=== PATIENT | female | born 1945 | race Caucasian/White ===

== ENCOUNTER → 2017-07-13 08:59 | Outpatient (CLI) | payer OTHER | END | disposition home or self-care (01) | LOC: LAB 08:59 | DX: E03.8 Other specified hypothyroidism (principal); I11.9 Hypertensive heart disease without heart failure; E78.4 Other hyperlipidemia; I10 Essential (primary) hypertension; E11.9 Type 2 diabetes mellitus without complications; E78.2 Mixed hyperlipidemia ==

== ENCOUNTER → 2017-10-18 | Outpatient (CLI) | payer OTHER | END | disposition home or self-care (01) | LOC: NUCLEAR 11:00 | DX: M81.0 Age-related osteoporosis without current pathological fracture (principal) ==

== ENCOUNTER 2018-01-25 09:49 | Outpatient (CLI) | payer OTHER | END 2018-01-25 11:24 | disposition home or self-care (01) | LOC: LAB 09:49 | DX: I11.9 Hypertensive heart disease without heart failure (principal); E78.4 Other hyperlipidemia; E11.65 Type 2 diabetes mellitus with hyperglycemia ==

== ENCOUNTER 2018-03-22 10:32 | Outpatient (CLI) | payer OTHER | END 2018-03-22 10:40 | disposition home or self-care (01) | LOC: LAB 10:32 | DX: R53.83 Other fatigue (principal); R53.1 Weakness; N95.1 Menopausal and female climacteric states; E03.4 Atrophy of thyroid (acquired); E55.9 Vitamin D deficiency, unspecified; I10 Essential (primary) hypertension; R73.09 Other abnormal glucose; E78.01 Familial hypercholesterolemia; E72.11 Homocystinuria ==

== ENCOUNTER 2018-10-24 09:27 | Outpatient (CLI) | payer OTHER | END 2018-10-24 09:30 | disposition home or self-care (01) | LOC: LAB 09:27 | DX: E78.2 Mixed hyperlipidemia (principal); E11.65 Type 2 diabetes mellitus with hyperglycemia; Z12.11 Encounter for screening for malignant neoplasm of colon; I10 Essential (primary) hypertension ==

== ENCOUNTER 2019-02-14 09:12 | Outpatient (CLI) | payer OTHER | END 2019-02-14 14:06 | disposition home or self-care (01) | LOC: LAB 09:12 | DX: E78.2 Mixed hyperlipidemia (principal); E11.65 Type 2 diabetes mellitus with hyperglycemia; Z12.11 Encounter for screening for malignant neoplasm of colon; E06.3 Autoimmune thyroiditis ==

== ENCOUNTER 2019-03-06 07:33 | Outpatient (CLI) | payer OTHER | END 2019-03-06 07:38 | disposition home or self-care (01) | LOC: SONOGRAMA 07:33 → MAMO-SONO 07:45 | DX: R10.84 Generalized abdominal pain (principal) ==

== ENCOUNTER 2019-07-31 09:13 | Outpatient (CLI) | payer OTHER | END 2019-07-31 15:00 | disposition home or self-care (01) | LOC: LAB 09:13 | DX: E11.65 Type 2 diabetes mellitus with hyperglycemia (principal); E78.2 Mixed hyperlipidemia; I10 Essential (primary) hypertension; Z12.11 Encounter for screening for malignant neoplasm of colon ==

== ENCOUNTER → 2019-12-04 09:21 | Outpatient (CLI) | payer OTHER | END | disposition home or self-care (01) | LOC: LAB 09:21 | PROVIDERS: ATTEND Specialist | DX: E78.2 Mixed hyperlipidemia (principal); I10 Essential (primary) hypertension; E11.65 Type 2 diabetes mellitus with hyperglycemia ==

== ENCOUNTER 2019-12-09 12:55 | Outpatient (CLI) | payer OTHER | END 2019-12-09 13:02 | disposition home or self-care (01) | LOC: MAMO-SONO 12:55 | PROVIDERS: ATTEND Specialist | DX: Z12.31 Encounter for screening mammogram for malignant neoplasm of breast (principal) ==

== ENCOUNTER 2020-02-02 14:02 | Outpatient (CLI) | payer OTHER | END 2020-02-02 14:19 | disposition home or self-care (01) | LOC: NUCLEAR 14:02 | PROVIDERS: ATTEND Specialist | DX: M81.0 Age-related osteoporosis without current pathological fracture (principal) ==

== ENCOUNTER → 2020-03-12 09:30 | Outpatient (CLI) | payer OTHER | END | disposition home or self-care (01) | LOC: LAB 09:30 | PROVIDERS: ATTEND Specialist | DX: E06.3 Autoimmune thyroiditis (principal); I10 Essential (primary) hypertension; E11.9 Type 2 diabetes mellitus without complications; E78.2 Mixed hyperlipidemia ==

== ENCOUNTER 2020-07-08 09:19 | Outpatient (CLI) | payer OTHER | END 2020-07-08 09:25 | disposition home or self-care (01) | LOC: LAB 09:19 | PROVIDERS: ATTEND Specialist | DX: I10 Essential (primary) hypertension (principal); E78.2 Mixed hyperlipidemia; E06.0 Acute thyroiditis; R73.09 Other abnormal glucose; Z12.11 Encounter for screening for malignant neoplasm of colon ==

== ENCOUNTER 2020-09-24 10:12 | Outpatient (CLI) | payer OTHER | END 2020-09-24 10:20 | disposition home or self-care (01) | LOC: LAB 10:12 → PPH VACUNA 10:12 → LAB 10:20 | PROVIDERS: ATTEND Specialist | DX: E78.2 Mixed hyperlipidemia (principal); I10 Essential (primary) hypertension; E55.9 Vitamin D deficiency, unspecified ==

== ENCOUNTER 2021-01-26 08:23 | Outpatient (CLI) | payer OTHER | END 2021-01-26 08:38 | disposition home or self-care (01) | LOC: MAMO-SONO 08:23 | PROVIDERS: ATTEND Specialist | DX: R92.1 Mammographic calcification found on diagnostic imaging of breast (principal); Z12.31 Encounter for screening mammogram for malignant neoplasm of breast ==

== ENCOUNTER 2021-02-10 09:41 | Outpatient (CLI) | payer OTHER | END 2021-02-10 09:42 | disposition home or self-care (01) | LOC: LAB 09:41 | PROVIDERS: ATTEND Specialist | DX: E78.2 Mixed hyperlipidemia (principal); E11.65 Type 2 diabetes mellitus with hyperglycemia; I10 Essential (primary) hypertension; Z12.11 Encounter for screening for malignant neoplasm of colon ==

== ENCOUNTER 2021-05-23 08:12 | Outpatient (CLI) | payer OTHER | END 2021-05-23 08:15 | disposition home or self-care (01) | LOC: SONOGRAMA 08:12 | PROVIDERS: ATTEND Specialist | DX: K80.80 Other cholelithiasis without obstruction (principal); N18.30 Chronic kidney disease, stage 3 unspecified; I10 Essential (primary) hypertension ==

== ENCOUNTER 2021-05-24 08:41 | Outpatient (CLI) | payer OTHER | END 2021-05-24 08:43 | disposition home or self-care (01) | LOC: LAB 08:41 | PROVIDERS: ATTEND Specialist | DX: E11.9 Type 2 diabetes mellitus without complications (principal); I10 Essential (primary) hypertension; E78.00 Pure hypercholesterolemia, unspecified ==

== ENCOUNTER 2021-09-01 08:48 | Outpatient (CLI) | payer OTHER | END 2021-09-01 09:07 | disposition home or self-care (01) | LOC: LAB 08:48 | PROVIDERS: ATTEND Specialist | DX: E78.2 Mixed hyperlipidemia (principal); E11.65 Type 2 diabetes mellitus with hyperglycemia; E06.3 Autoimmune thyroiditis; Z12.11 Encounter for screening for malignant neoplasm of colon; E83.40 Disorders of magnesium metabolism, unspecified; E55.9 Vitamin D deficiency, unspecified ==

== ENCOUNTER 2021-09-01 10:04 | Outpatient (CLI) | payer OTHER | END 2021-09-01 10:24 | disposition home or self-care (01) | LOC: SONOGRAMA 10:04 | PROVIDERS: ATTEND Specialist | DX: E04.1 Nontoxic single thyroid nodule (principal) ==

== ENCOUNTER 2021-11-18 08:56 | Outpatient (CLI) | payer OTHER | END 2021-11-18 09:01 | disposition home or self-care (01) | LOC: LAB 08:56 | PROVIDERS: ATTEND Specialist | DX: E78.2 Mixed hyperlipidemia (principal); E11.65 Type 2 diabetes mellitus with hyperglycemia; I10 Essential (primary) hypertension ==

== ENCOUNTER 2022-02-17 07:31 | Outpatient (CLI) | payer OTHER | END 2022-02-17 07:37 | disposition home or self-care (01) | LOC: LAB 07:31 | PROVIDERS: ATTEND Internal Medicine Endocrinology, Diabetes & Metabolism | DX: E11.65 Type 2 diabetes mellitus with hyperglycemia (principal); E03.8 Other specified hypothyroidism; E78.00 Pure hypercholesterolemia, unspecified; E78.2 Mixed hyperlipidemia; I10 Essential (primary) hypertension; Z12.11 Encounter for screening for malignant neoplasm of colon ==

== ENCOUNTER → 2022-05-19 07:35 | Outpatient (CLI) | payer OTHER | END | disposition home or self-care (01) | LOC: LAB 07:35 | PROVIDERS: ATTEND Internal Medicine Endocrinology, Diabetes & Metabolism | DX: E11.65 Type 2 diabetes mellitus with hyperglycemia (principal); E03.8 Other specified hypothyroidism; E78.2 Mixed hyperlipidemia ==

== ENCOUNTER 2022-06-12 13:19 | Outpatient (CLI) | payer OTHER | END 2022-06-12 13:21 | disposition home or self-care (01) | LOC: NUCLEAR 13:19 | PROVIDERS: ATTEND Specialist | DX: M81.0 Age-related osteoporosis without current pathological fracture (principal) ==

== ENCOUNTER 2022-06-26 07:58 | Outpatient (CLI) | payer OTHER | END 2022-06-26 08:01 | disposition home or self-care (01) | LOC: MAMO-SONO 07:58 | PROVIDERS: ATTEND Specialist | DX: Z12.31 Encounter for screening mammogram for malignant neoplasm of breast (principal) ==

== ENCOUNTER 2022-09-24 08:35 | Outpatient (CLI) | payer OTHER | END 2022-09-24 08:39 | disposition home or self-care (01) | LOC: LAB 08:35 | PROVIDERS: ATTEND Specialist | DX: E78.2 Mixed hyperlipidemia (principal); E11.65 Type 2 diabetes mellitus with hyperglycemia; E55.9 Vitamin D deficiency, unspecified; I11.9 Hypertensive heart disease without heart failure; E78.5 Hyperlipidemia, unspecified; E03.8 Other specified hypothyroidism ==

== ENCOUNTER 2023-01-12 09:30 | Outpatient (CLI) | payer OTHER | END 2023-01-12 09:32 | disposition home or self-care (01) | LOC: LAB 09:30 | PROVIDERS: ATTEND Specialist | DX: E78.2 Mixed hyperlipidemia (principal); E11.65 Type 2 diabetes mellitus with hyperglycemia; I10 Essential (primary) hypertension ==

== ENCOUNTER 2023-06-29 07:30 | Outpatient (CLI) | payer OTHER ==
[2023-06-29 08:16] LABS: HEMATOCRIT 39.7 % (36.0-45.00); HEMOGLOBIN 13.9 g/dL (12.0-15.00); MEAN CELL VOLUME 97.4 fL (80.00-100.00); MEAN CORPUSCULAR HEMOGLOBIN 34.2 pg (27.00-32.0); MEAN CORPUSCULAR HGB CONC 35.1 g/dl (32.0-36.0); PLATELET COUNT 320 K/uL (150-450); RED BLOOD COUNT 4.07 M/uL (4.00-6.00); RED CELL DISTRIBUTION WIDTH 12.9 % (11.5-14.5)
[2023-06-29 08:55] LABS: ALBUMIN 3.7 gm/dL (3.4-5.0); BILIRUBIN TOTAL 0.67 mg/dL (0.3-1.2); CALCIUM 9.1 mg/dL (8.5-10.1); CHOL HDL RATIO 2.2 (0-5.0); CREATININE SERUM 0.88 mg/dL (0.55-1.02); GFR 62.47; GLOBULINA 3.3 G/DL (2.4-3.5); POTASSIUM 4.29 mEq/L (3.5-5.1); T4 FREE 1.31 NG/ML (0.76-1.46); TSH 0.884 uIU/mL (0.358-3.74)
[2023-06-29 09:38] LABS: PH,URINE 5.5 (5.0-8.0); URINE APPEARANCE Clear; URINE BILIRRUBIN Negative (NEGATIVE); URINE BLOOD Small; URINE COLOR Yellow; URINE GLUCOSE Negative (NEGATIVE); URINE LEUKOCYTE Trace; URINE NITRATE Negative; URINE PROTEIN Negative (NEGATIVE); URINE UROBILINOGEN 0.2 E.U./dl
[2023-06-29 09:47] LABS: URINE BACTERIA 64.2 uL (0.0-1933); URINE EPITHELIAL CELLS 1.6 uL (0.0-38.8); URINE RBC 5.7 uL (0.0-20.8); URINE WBC 2.9 uL (0.0-23.2)
== END 2023-06-29 07:35 | disposition home or self-care (01) ==
LOC: LAB 07:30
PROVIDERS: ATTEND Internal Medicine Endocrinology, Diabetes & Metabolism
DX: E03.8 Other specified hypothyroidism (principal); E11.65 Type 2 diabetes mellitus with hyperglycemia; E78.00 Pure hypercholesterolemia, unspecified

== ENCOUNTER 2024-03-02 07:56 | Outpatient (CLI) | payer OTHER ==
[2024-03-02 08:57] LABS: HEMATOCRIT 40.3 % (36.0-45.00); HEMOGLOBIN 14.1 g/dL (12.0-15.00); MEAN CELL VOLUME 97.9 fL (80.00-100.00); MEAN CORPUSCULAR HEMOGLOBIN 34.2 pg (27.00-32.0); MEAN CORPUSCULAR HGB CONC 34.9 g/dl (32.0-36.0); PLATELET COUNT 289 K/uL (150-450); RED BLOOD COUNT 4.12 M/uL (4.00-6.00); RED CELL DISTRIBUTION WIDTH 12.8 % (11.5-14.5)
[2024-03-02 09:43] LABS: ALBUMIN 3.6 gm/dL (3.4-5.0); BILIRUBIN TOTAL 0.7 mg/dL (0.3-1.2); CHOL HDL RATIO 2.3 (0-5.0); CREATININE SERUM 0.81 mg/dL (0.55-1.02); GFR 68.75; GLOBULINA 3.6 G/DL (2.4-3.5); POTASSIUM 4.49 mEq/L (3.5-5.1); TOTAL PROTEIN 7.2 gm/dL (6.4-8.2); TSH 0.833 uIU/mL (0.358-3.74)
== END 2024-03-02 08:01 | disposition home or self-care (01) ==
LOC: LAB 07:56
PROVIDERS: ATTEND Specialist
DX: I11.9 Hypertensive heart disease without heart failure (principal); E78.5 Hyperlipidemia, unspecified; E03.8 Other specified hypothyroidism; R43.9 Unspecified disturbances of smell and taste; I10 Essential (primary) hypertension

== ENCOUNTER 2024-03-10 07:53 | Outpatient (CLI) | payer OTHER | END 2024-03-10 07:56 | disposition home or self-care (01) | LOC: SONOGRAMA 07:53 | DX: R10.13 Epigastric pain (principal); R10.11 Right upper quadrant pain ==

== ENCOUNTER 2024-06-01 09:56 | Outpatient (CLI) | payer OTHER | END 2024-06-01 09:58 | disposition home or self-care (01) | LOC: RAD 09:56 | PROVIDERS: ATTEND Specialist | DX: I11.9 Hypertensive heart disease without heart failure (principal) ==

== ENCOUNTER 2024-06-08 08:31 | Outpatient (CLI) | payer OTHER | END 2024-06-08 08:43 | disposition home or self-care (01) | LOC: SONOGRAMA 08:31 | PROVIDERS: ATTEND Internal Medicine Endocrinology, Diabetes & Metabolism | DX: E04.8 Other specified nontoxic goiter (principal) ==

== ENCOUNTER 2024-06-12 08:36 | Outpatient (CLI) | payer OTHER | END 2024-06-12 08:51 | disposition home or self-care (01) | LOC: MRI 08:36 | PROVIDERS: ATTEND Specialist | DX: I11.9 Hypertensive heart disease without heart failure (principal); R51.9 Headache, unspecified; J01.90 Acute sinusitis, unspecified | CPT/HCPCS: 70551 ==

== ENCOUNTER 2024-06-15 07:29 | Outpatient (CLI) | payer OTHER | END 2024-06-15 07:37 | disposition home or self-care (01) | LOC: MAMO-SONO 07:29 | PROVIDERS: ATTEND Specialist | DX: Z12.31 Encounter for screening mammogram for malignant neoplasm of breast (principal) ==

== ENCOUNTER 2024-06-30 09:34 | Outpatient (CLI) | payer OTHER | END 2024-06-30 09:36 | disposition home or self-care (01) | LOC: NUCLEAR 09:34 | PROVIDERS: ATTEND Specialist | DX: M81.0 Age-related osteoporosis without current pathological fracture (principal) ==

== ENCOUNTER 2024-07-23 08:03 | Outpatient (CLI) | payer OTHER ==
[2024-07-23 08:53] LABS: HEMATOCRIT 41.6 % (36.0-45.00); HEMOGLOBIN 14.6 g/dL (12.0-15.00); MEAN CELL VOLUME 98.1 fL (80.00-100.00); MEAN CORPUSCULAR HEMOGLOBIN 34.5 pg (27.00-32.0); MEAN CORPUSCULAR HGB CONC 35.1 g/dl (32.0-36.0); PLATELET COUNT 349 K/uL (150-450); RED BLOOD COUNT 4.24 M/uL (4.00-6.00); RED CELL DISTRIBUTION WIDTH 12.5 % (11.5-14.5)
[2024-07-23 09:16] LABS: ob NEGATIVE (NEGATIVE)
[2024-07-23 10:04] LABS: ALBUMIN 3.6 gm/dL (3.4-5.0); BILIRUBIN TOTAL 0.88 mg/dL (0.3-1.2); CALCIUM 9.1 mg/dL (8.5-10.1); CHOL HDL RATIO 2.2 (0-5.0); CREATININE SERUM 0.81 mg/dL (0.55-1.02); GFR 68.56; GLOBULINA 3.8 G/DL (2.4-3.5); POTASSIUM 4.19 mEq/L (3.5-5.1); T4 FREE 1.25 NG/ML (0.76-1.46); TOTAL PROTEIN 7.4 gm/dL (6.4-8.2); TSH 0.913 uIU/mL (0.358-3.74)
== END 2024-07-23 08:05 | disposition home or self-care (01) ==
LOC: LAB 08:03
PROVIDERS: ATTEND Specialist
DX: E78.2 Mixed hyperlipidemia (principal); E11.65 Type 2 diabetes mellitus with hyperglycemia; I10 Essential (primary) hypertension; Z12.11 Encounter for screening for malignant neoplasm of colon; E03.8 Other specified hypothyroidism

== ENCOUNTER 2024-08-28 07:54 | Outpatient (CLI) | payer OTHER ==
[2024-08-28 10:27] LABS: CREATININE SERUM 0.79 mg/dL (0.55-1.02)
== END 2024-08-28 07:59 | disposition home or self-care (01) ==
LOC: LAB 07:54
DX: R94.4 Abnormal results of kidney function studies (principal)

== ENCOUNTER 2024-09-24 09:30 | Outpatient (CLI) | payer OTHER | END 2024-09-24 09:32 | disposition home or self-care (01) | LOC: RAD 09:30 | PROVIDERS: ATTEND Internal Medicine Cardiovascular Disease | DX: R06.02 Shortness of breath (principal); I10 Essential (primary) hypertension ==

== ENCOUNTER 2024-09-26 08:49 | Outpatient (CLI) | payer OTHER ==
[2024-09-26 10:35] LABS: HEMATOCRIT 42.6 % (36.0-45.00); HEMOGLOBIN 15.1 g/dL (12.0-15.00); MEAN CELL VOLUME 97.7 fL (80.00-100.00); MEAN CORPUSCULAR HEMOGLOBIN 34.6 pg (27.00-32.0); MEAN CORPUSCULAR HGB CONC 35.4 g/dl (32.0-36.0); PLATELET COUNT 333 K/uL (150-450); RED BLOOD COUNT 4.36 M/uL (4.00-6.00); RED CELL DISTRIBUTION WIDTH 13.1 % (11.5-14.5)
[2024-09-26 10:53] LABS: ALBUMIN 3.9 gm/dL (3.4-5.0); BILIRUBIN TOTAL 0.81 mg/dL (0.3-1.2); CALCIUM 9.7 mg/dL (8.5-10.1); CREATININE SERUM 0.79 mg/dL (0.55-1.02); GFR 70.57; GLOBULINA 3.8 G/DL (2.4-3.5); POTASSIUM 4.62 mEq/L (3.5-5.1); TOTAL PROTEIN 7.7 gm/dL (6.4-8.2)
== END 2024-09-26 23:00 | disposition home or self-care (01) ==
LOC: LAB 08:49
PROVIDERS: ATTEND Internal Medicine Cardiovascular Disease
DX: D64.9 Anemia, unspecified (principal); R73.01 Impaired fasting glucose; I10 Essential (primary) hypertension

== ENCOUNTER 2025-01-19 07:54 | Outpatient (CLI) | payer OTHER | END 2025-01-19 07:56 | disposition home or self-care (01) | LOC: SONOGRAMA 07:54 | PROVIDERS: ATTEND Internal Medicine Cardiovascular Disease | DX: I12.9 Hypertensive chronic kidney disease with stage 1 through stage 4 chronic kidney disease, or unspecified chronic kidney disease (principal) ==